=== PATIENT | female | born 1980 | race Caucasian/White ===

== ENCOUNTER 2016-10-16 | Emergency (ER) | payer MEDICAID, OTHER ==
[~2016-10-16] VITALS: Ht 172.7 cm; Wt 73.0 kg
[~2016-10-16] MED LIST: INSULIN
[2016-10-16] MEDS ORDERED: HYDROMORPHONE 1 MG/1 ML DISP.SYRIN IM ONE (01:30)
[2016-10-16] MEDS ORDERED: PROMETHAZINE HCL 25 MG/1 ML VIAL IM ONE (01:30)
--- NOTE | 2016-10-16 01:35 | NUR ---
xrays obtained, awaiting results. Pt was able to locate ride home. Pt medicated for pain, will monitor for effects of medication.
[2016-10-16] MEDS ORDERED: HYDROMORPHONE 1 MG/1 ML DISP.SYRIN ONE (01:43)
[2016-10-16] MEDS ORDERED: PROMETHAZINE HCL 25 MG/1 ML VIAL ONE (01:44)
--- NOTE | 2016-10-16 01:54 | NUR ---
Pt stable for discharge per MD. Pt given ACI. Pt verbalized understanding of dc instructions. PT ambulated out of er with slow steady gait and ride home.
[2016-10-16 01:55] VITALS: BP 144/91
== END 2016-10-16 01:50 | disposition home or self-care (01) ==
LOC: ER 00:10
DX: S80.12XA Contusion of left lower leg, initial encounter (principal); E11.9 Type 2 diabetes mellitus without complications; Z79.4 Long term (current) use of insulin; V49.3XXA Car occupant (driver) (passenger) injured in unspecified nontraffic accident, initial encounter; Y93.89 Activity, other specified; Y92.9 Unspecified place or not applicable; Y99.9 Unspecified external cause status
CPT/HCPCS: 73590; A4663; J1170; J2550

== ENCOUNTER 2016-11-06 15:16 | Emergency (ER) | payer MEDICAID ==
[~2016-11-06] VITALS: Ht 170.2 cm; Wt 70.3 kg
--- NOTE | 2016-11-06 15:30 | NUR ---
DR PRICE AT THE BEDSIDE FOR EVAL AND EXAM.
[2016-11-06] MEDS ORDERED: VANCOMYCIN IV 1,000 MG in IV DEXTROSE 5% 250 ML IV ONE (15:45)
[2016-11-06] MEDS ORDERED: PIPERACILLIN SODIUM/TAZOBACTAM 3.375 G in IV DEXTROSE 5% 50 ML IV ONE (15:45)
[2016-11-06] MEDS ORDERED: AMPH20TA3 PO (15:46)
[2016-11-06] MEDS ORDERED: HYDR-3974 PO (15:46)
[2016-11-06] MEDS ORDERED: IBUP-1955 PO (15:46)
--- NOTE | 2016-11-06 15:57 | NUR ---
PT SIGNED CONSENT FOR WAIVER, PLACED IN THE CHART.
[2016-11-06 16:02] LABS: BASOPHILS % (AUTO) 0.6 % (0.0-2.0); EOSINOPHILS # (AUTO) 0.1 K/uL (0.0-0.7); EOSINOPHILS % (AUTO) 1.7 % (0.0-7.0); HEMATOCRIT 36.1 % (37-47); LYMPHOCYTES # (AUTO) 1.2 K/UL (0.8-4.8); LYMPHOCYTES % (AUTO) 15.3 % (20.5-51.5); MEAN CORPUSCULAR HEMOGLOBIN 30.8 UUG (27.0-31.0); MEAN CORPUSCULAR HGB CONC 33 g/dL (32.0-37.0); MEAN CORPUSCULAR VOLUME 92.5 FL (81.0-99.0); MONOCYTES # (AUTO) 0.5 K/UL (0.1-1.30); MONOCYTES % (AUTO) 6.9 % (0.0-11.0); NEUTROPHILS # (AUTO) 6.1 K/UL (1.8-8.9); NEUTROPHILS % (AUTO) 75.5 % (38.5-71.5); PLATELET COUNT (AUTO) 222 K/UL (150-450); WHITE BLOOD COUNT (AUTO) 7.9 K/UL (4.0-11.2)
[2016-11-06] MEDS ORDERED: VANCOMYCIN IV 200 ML ONE (16:02)
[2016-11-06] MEDS ORDERED: PIPERACILLIN/TAZOBACTAM/D5W 50 ML IV ONE (16:03)
--- NOTE | 2016-11-06 16:10 | NUR ---
PT REFUSED TO BE TRANSFERED TO [facility](PER PT'S OWN INSURANCE). NILAM PASCAL SPOKE TO LAP LAYER.
[2016-11-06 16:15] LABS: BILIRUBIN,DIRECT 0.1 mg/dL (0.0-0.2); BILIRUBIN,TOTAL 0.2 mg/dL (0.2-1.0); CREATININE 0.9 mg/dL (0.6-1.3); POTASSIUM 4.3 mmol/L (3.5-5.1); TOTAL PROTEIN, SERUM 7.2 g/dL (6.4-8.2)
[2016-11-06] MEDS ORDERED: HYDROCODONE/APAP 5-325MG TABLET PO ONE (16:30)
--- NOTE | 2016-11-06 16:43 | NUR ---
DAKOTAH([facility]) AT THE BEDSIDE ASSISSTING PT W/ INSURANCE INFO.
[2016-11-06] MEDS ORDERED: HYDROCODONE/APAP 5-325MG TABLET ONE (16:47)
[2016-11-06] MEDS ORDERED: INSULIN REGULAR, HUMAN 1,000 UNITS/10 ML VIAL SUBCUT ONE (18:00)
[2016-11-06] MEDS ORDERED: INSULIN REGULAR, HUMAN 300 UNIT/3 ML VIAL ONE (18:11)
--- NOTE | 2016-11-06 18:17 | NUR ---
IV removed. Catheter intact and site benign. Pressure and 4x4 gauze applied to site. No bleeding noted.
--- NOTE | 2016-11-06 18:17 | NUR ---
Patient discharged to home in stable conditon. Written and verbal after care instructions given. Patient verbalizes understanding of instructions.
[2016-11-06 18:18] VITALS: BP 115/69
== END 2016-11-06 18:22 | disposition home or self-care (01) ==
LOC: ER 15:17
DX: L03.116 Cellulitis of left lower limb (principal); E11.9 Type 2 diabetes mellitus without complications; Z79.4 Long term (current) use of insulin
CPT/HCPCS: 36415; 71010; 83605; 85025; 85730; 87040; 93005; A4663; J1815; J2543; J3370

== ENCOUNTER 2017-10-10 11:29 | Emergency (ER) | payer BC, MEDICAID ==
[~2017-10-10] VITALS: Ht 170.2 cm; Wt 68.0 kg
[~2017-10-10 11:29] MED LIST changes: +AMPH20TA3 PO; +HYDR-3974 PO; +IBUP-1955 PO
[2017-10-10] MEDS ORDERED: HYDR-3326 PO (11:45)
[2017-10-10] MEDS ORDERED: HUMALOG INSULIN (11:45)
--- NOTE | 2017-10-10 13:39 | NUR ---
shara barrett at the bedside
--- NOTE | 2017-10-10 14:15 | NUR ---
Patient discharged to home in stable conditon. Written and verbal after care instructions given. Patient verbalizes understanding of instructions.
== END 2017-10-10 14:16 | disposition home or self-care (01) ==
LOC: ER 11:31
DX: G89.18 Other acute postprocedural pain (principal); M25.562 Pain in left knee; E11.9 Type 2 diabetes mellitus without complications; Z88.1 Allergy status to other antibiotic agents; Z91.048 Other nonmedicinal substance allergy status; Z79.891 Long term (current) use of opiate analgesic; Z79.4 Long term (current) use of insulin; Z79.1 Long term (current) use of non-steroidal anti-inflammatories (NSAID); Z79.899 Other long term (current) drug therapy
CPT/HCPCS: A4663

== ENCOUNTER 2019-05-11 20:34 | Emergency (ER) | payer MEDICAID ==
[~2019-05-11] VITALS: Ht 172.7 cm; Wt 67.6 kg
[2019-05-11 21:24] VITALS: BP 117/85
--- NOTE | 2019-05-11 21:24 | NUR ---
Patient discharged to home in stable conditon. Written and verbal after care instructions given. Patient verbalizes understanding of instructions. Patient discharged home with crutches and boot. CMS WNL. No acute distress
== END 2019-05-11 21:26 | disposition home or self-care (01) ==
LOC: ER 20:34
DX: S99.922A Unspecified injury of left foot, initial encounter (principal); M23.91 Unspecified internal derangement of right knee; F17.200 Nicotine dependence, unspecified, uncomplicated; E10.9 Type 1 diabetes mellitus without complications; Z88.1 Allergy status to other antibiotic agents; X50.1XXA Overexertion from prolonged static or awkward postures, initial encounter; Y93.89 Activity, other specified; Y92.091 Bathroom in other non-institutional residence as the place of occurrence of the external cause; Y99.8 Other external cause status
CPT/HCPCS: 73630; A4663

== ENCOUNTER 2019-09-22 22:29 | Emergency (ER) | payer BC, MEDICAID ==
[~2019-09-22] VITALS: Ht 172.7 cm; Wt 62.6 kg
[~2019-09-22 22:29] MED LIST changes: -AMPH20TA3 PO; +HUMALOG INSULIN; +HYDR-3326 PO; -HYDR-3974 PO; -IBUP-1955 PO; -INSULIN
--- NOTE | 2019-09-22 22:30 | NUR ---
Patient walked into ER c/o left foot redness and swelling. Patient states she is post op on 09/05/19 at [facility] for bone fragment removal. Has surgical shoes on. Stitches removed by surgeon 2 days ago.
[2019-09-22] MEDS ORDERED: DOXY100C2 PO (22:43)
--- NOTE | 2019-09-22 23:00 | NUR ---
Dr Rivera into eval patient.
[2019-09-22 23:25] LABS: *URINE HCG, QUAL NEGATIVE (NEGATIVE)
--- NOTE | 2019-09-23 00:33 | NUR ---
Patient discharged to home in stable condition. Written and verbal after care instructions given. Patient verbalizes understanding of instructions. Stressed follow up or return to ER for worsening s/s. Dressing placed on left foot as ordered by Dr Rivera.
[2019-09-23 00:34] VITALS: BP 140/85
== END 2019-09-23 00:35 | disposition home or self-care (01) ==
LOC: ER 22:33
DX: R22.42 Localized swelling, mass and lump, left lower limb (principal); L03.116 Cellulitis of left lower limb; F17.210 Nicotine dependence, cigarettes, uncomplicated; E10.8 Type 1 diabetes mellitus with unspecified complications; Z79.4 Long term (current) use of insulin; Z98.890 Other specified postprocedural states
CPT/HCPCS: 73630; 76881; 84703; A4663

== ENCOUNTER 2019-11-19 14:55 | Emergency (ER) | payer BC, MEDICAID ==
[~2019-11-19] VITALS: Ht 172.7 cm; Wt 65.3 kg
[~2019-11-19 14:55] MED LIST changes: +DOXY100C2 PO; -HYDR-3326 PO
[2019-11-19] MEDS ORDERED: VANCOMYCIN IV 1,000 MG in IV DEXTROSE 5% 250 ML IV ONE (15:45)
[2019-11-19] MEDS ORDERED: IBUPROFEN 600 MG TABLET PO ONE (15:45)
[2019-11-19] MEDS ORDERED: ACETAMINOPHEN ES 500 MG TABLET PO ONE (15:45)
[2019-11-19] MEDS ORDERED: LORAZEPAM 2 MG/1 ML VIAL IV ONE (16:00)
[2019-11-19] MEDS ORDERED: KETOROLAC TROMETHAMINE 30 MG INJ IVP ONE (16:15)
--- NOTE | 2019-11-19 16:35 | NUR ---
DR. SALMERON AWARE AND CHARGE NURSE AWARE CALL [phone]
--- NOTE | 2019-11-19 16:35 | NUR ---
39 YRAS FEMALE C/O PAIN AND REDNES ON RT SMALE TOE HERE FOR EVALUATION PT ANXOUSE AND COOPARITIVE INSERTED ANGO CATH # 20 ON RT AC FOR IV ANTIBOTIC PT WALK OUT AND REFUSED TO WAIT FOR MEDITION AND WALK OUT WITH IV LINE REFUSED ME TO TAKE OUT HER H/ AND DROVE HERE CAR PT AWARE WE HAVE TO NOTEFY POLICE FOR HERE DUE TO GOING HOME WITH H/C
[2019-11-19] MEDS ORDERED: VANCOMYCIN IV 200 ML ONE (16:50)
== END 2019-11-19 16:35 | disposition left against medical advice (07) ==
LOC: ER 14:55
DX: L03.115 Cellulitis of right lower limb (principal); E10.69 Type 1 diabetes mellitus with other specified complication; M86.8X7 Other osteomyelitis, ankle and foot; Z79.4 Long term (current) use of insulin; F17.200 Nicotine dependence, unspecified, uncomplicated; F31.9 Bipolar disorder, unspecified; Z88.1 Allergy status to other antibiotic agents; Z91.040 Latex allergy status
CPT/HCPCS: 73630; 99283; J3370 ×2; A4663

== ENCOUNTER 2019-11-23 00:11 | Emergency (ER) | payer BC ==
[~2019-11-23] VITALS: Ht 172.7 cm; Wt 64.4 kg
--- NOTE | 2019-11-23 00:15 | NUR ---
Patient walked into ER with c/o left foot pain, states she is being treated for a foot infection with oral antibiotics but she feels like it is not getting better. Patient ambulated with steady gait, denies any chest pain, shortness of breath, chills, nausea/vomiting at this time.
--- NOTE | 2019-11-23 00:24 | NUR ---
Dr. Jolley at bedside for MSE.
[2019-11-23] MEDS ORDERED: CEFTRIAXONE 1 G in IV DEXTROSE 5% 50 ML IV ONE (00:30)
[2019-11-23] MEDS ORDERED: ONDANSETRON 4 MG/2 ML VIAL IV ONE (00:30)
[2019-11-23] MEDS ORDERED: MORPHINE SULFATE 4 MG/1 ML DISP.SYRIN IV ONE (00:30)
[2019-11-23] MEDS ORDERED: VANCOMYCIN IV 1,000 MG in IV DEXTROSE 5% 250 ML IV ONE (00:30)
[2019-11-23] MEDS ORDERED: IV NORMAL SALINE 1000 ML BAG IV ONE (00:30)
[2019-11-23] MEDS ORDERED: ONDANSETRON 4 MG/2 ML VIAL ONE (00:36)
[2019-11-23] MEDS ORDERED: MORPHINE SULFATE 4 MG/1 ML DISP.SYRIN ONE (00:36)
[2019-11-23] MEDS ORDERED: VANCOMYCIN IV 200 ML ONE (00:36)
[2019-11-23] MEDS ORDERED: CEFTRIAXONE /D5W 50ML IVPB **ER PYXIS IV ONE (00:37)
[2019-11-23 00:45] LABS: BASOPHILS # (AUTO) 0.1 K/uL (0.0-8.0); BASOPHILS % (AUTO) 0.8 % (0.0-2.0); EOSINOPHILS # (AUTO) 0.2 K/uL (0.0-0.7); EOSINOPHILS % (AUTO) 2.9 % (0.0-7.0); HEMATOCRIT 37.8 % (31.2-41.9); HEMOGLOBIN 12.9 g/dL (10.9-14.3); LYMPHOCYTES # (AUTO) 1.7 K/uL (20.0-40.0); LYMPHOCYTES % (AUTO) 21.5 % (20.5-51.5); MEAN CORPUSCULAR HEMOGLOBIN 32.6 uug (24.7-32.8); MEAN CORPUSCULAR HGB CONC 34 g/dL (32.3-35.6); MEAN CORPUSCULAR VOLUME 95.4 fL (75.5-95.3); MONOCYTES # (AUTO) 0.7 K/uL (2.0-10.0); MONOCYTES % (AUTO) 8.9 % (0.0-11.0); NEUTROPHILS # (AUTO) 5.3 K/uL (1.8-8.9); NEUTROPHILS % (AUTO) 65.9 % (38.5-71.5); PLATELET COUNT (AUTO) 228 K/uL (179-408); RED BLOOD CELL COUNT(AUTO) 3.97 MIL/uL (3.63-4.92); WHITE BLOOD COUNT (AUTO) 8.1 K/uL (3.8-11.8)
[2019-11-23 00:53] LABS: CREATININE 1.1 mg/dL (0.6-1.3)
[2019-11-23 00:58] LABS: BILIRUBIN,DIRECT 0.1 mg/dL (0.0-0.2); BILIRUBIN,TOTAL 0.2 mg/dL (0.2-1.0); TOTAL PROTEIN, SERUM 7.2 g/dL (6.4-8.2)
--- NOTE | 2019-11-23 01:30 | NUR ---
Attempted to call Dr. Michael from [facility], left message to call us back.
--- NOTE | 2019-11-23 01:54 | NUR ---
Attempted to call Dr. Michael . m
--- NOTE | 2019-11-23 02:11 | NUR ---
Left message for Dr. Michael to call us back.
--- NOTE | 2019-11-23 02:47 | NUR ---
DR SALMERON SPEAKING WITH DR. VORA AT THIS TIME.
--- NOTE | 2019-11-23 04:18 | NUR ---
Spoke with Delores from [facility], need covid result before transfer. Spoke with Pinky from lab, will call occupational therapist's assistant again for specimen pharmacy picking tech.
--- NOTE | 2019-11-23 05:15 | NUR ---
Spoke with Pinky from lab, kaleb picked up specimen at this time.
--- NOTE | 2019-11-23 06:30 | NUR ---
Called lab to follow up on covid test.
--- NOTE | 2019-11-23 06:51 | NUR ---
Covid results to be faxed to [facility] once available. phone number . Authorization # for transport [id number] through [facility]. [facility] #
--- NOTE | 2019-11-23 06:53 | NUR ---
Spoke with lab again, no results available yet, lab staff to call Juan Pires for results.
--- NOTE | 2019-11-23 07:09 | NUR ---
handoff to JAYANT Dumont
--- NOTE | 2019-11-23 07:24 | NUR ---
COVID test results faxed to [facility], awaiting call from transfer center.
--- NOTE | 2019-11-23 07:24 | NUR ---
Received report from Neel SABA.
--- NOTE | 2019-11-23 07:25 | NUR ---
Recieved ANNA results and faxed to [facility]
--- NOTE | 2019-11-23 08:00 | NUR ---
Called [facility], stated they have not recieved fax of COVID results. Refaxed and awaiting for a call back.
--- NOTE | 2019-11-23 09:15 | NUR ---
Called [facility] spoke to Joshua SABA for report.
--- NOTE | 2019-11-23 09:16 | NUR ---
Miriam called for rock picker. [id number] rock picker given for transport.
--- NOTE | 2019-11-23 10:05 | NUR ---
Ambulance picked up patient D/C and being transported to [facility]
[2019-11-23 10:12] VITALS: BP 118/70
== END 2019-11-23 10:00 | disposition short-term general hospital (02) ==
LOC: ER 00:14
DX: E10.69 Type 1 diabetes mellitus with other specified complication (principal); M86.8X7 Other osteomyelitis, ankle and foot; Z79.4 Long term (current) use of insulin; F31.9 Bipolar disorder, unspecified; L03.115 Cellulitis of right lower limb; Z20.828 Contact with and (suspected) exposure to other viral communicable diseases
CPT/HCPCS: 36415; 73630; 80048; 80076; 85025; 85730; 87426; 96365; 96367; 96375; 99284; J0696; J2270; J2405; J3370

== ENCOUNTER 2020-02-28 07:26 | Emergency (ER) | payer SELFPAY ==
--- NOTE | 2020-02-28 07:30 | NUR ---
PT NOT IN WAITING ROOM, NOR WITHIN ER PERIPHERY OUTSIDE.
== END 2020-02-28 07:45 | disposition left against medical advice (07) ==
LOC: ER 07:26
DX: Z75.3 Unavailability and inaccessibility of health-care facilities (principal)

== ENCOUNTER 2020-03-24 17:47 | Emergency (ER) | payer BC ==
[~2020-03-24] VITALS: Ht 172.7 cm; Wt 61.2 kg
[2020-03-24] MEDS ORDERED: ONDANSETRON 4 MG/2 ML VIAL IV ONE (18:15)
[2020-03-24] MEDS ORDERED: IV NORMAL SALINE 1000 ML BAG IV ONE ×2 (18:15)
[2020-03-24] MEDS ORDERED: HYDROMORPHONE 1 MG/1 ML DISP.SYRIN IV ONE (18:15)
[2020-03-24] MEDS ORDERED: HYDROMORPHONE 2 MG/1 ML DISP.SYRIN ONE (18:33)
[2020-03-24] MEDS ORDERED: ONDANSETRON 4 MG/2 ML VIAL ONE (18:33)
[2020-03-24 19:03] LABS: MONOCYTES # (AUTO) 1.2 K/uL (2.0-10.0); PLATELET COUNT (AUTO) 137 K/uL (179-408)
[2020-03-24 19:09] LABS: BASOPHILS % (AUTO) 0.5 % (0.0-2.0); HEMATOCRIT 41.5 % (31.2-41.9); HEMOGLOBIN 13.9 g/dL (10.9-14.3); LYMPHOCYTES # (AUTO) 0.5 K/uL (20.0-40.0); LYMPHOCYTES % (AUTO) 5.7 % (20.5-51.5); MEAN CORPUSCULAR HEMOGLOBIN 31.7 uug (24.7-32.8); MEAN CORPUSCULAR HGB CONC 34 g/dL (32.3-35.6); MEAN CORPUSCULAR VOLUME 94.4 fL (75.5-95.3); MONOCYTES % (AUTO) 14.9 % (0.0-11.0); NEUTROPHILS # (AUTO) 6.6 K/uL (1.8-8.9); NEUTROPHILS % (AUTO) 78.9 % (38.5-71.5); RED BLOOD CELL COUNT(AUTO) 4.39 MIL/uL (3.63-4.92); WHITE BLOOD COUNT (AUTO) 8.4 K/uL (3.8-11.8)
[2020-03-24 19:12] LABS: BILIRUBIN,DIRECT 0.1 mg/dL (0.0-0.2); BILIRUBIN,TOTAL 0.3 mg/dL (0.2-1.0); CREATININE 1.1 mg/dL (0.6-1.3); POTASSIUM 3.7 mmol/L (3.5-5.1); TOTAL PROTEIN, SERUM 7.2 g/dL (6.4-8.2)
[2020-03-24] MEDS ORDERED: VANCOMYCIN 1G/D5W 200 ML PIGGYBACK IV ONE (19:15)
--- NOTE | 2020-03-24 19:24 | NUR ---
received patient in shift report from Muriel SABA
[2020-03-24] MEDS ORDERED: VANCOMYCIN IV 200 ML ONE (19:31)
[2020-03-24] MEDS ORDERED: PIPERACILLIN/TAZOBACTAM/D5W 50 ML IV ONE (20:10)
--- NOTE | 2020-03-24 20:16 | NUR ---
Flu swab sent to lab at this time
[2020-03-24] MEDS ORDERED: PIPERACILLIN SODIUM/TAZOBACTAM 3.375 G in IV DEXTROSE 5% 50 ML IV ONE (21:15)
--- NOTE | 2020-03-24 22:18 | NUR ---
MD Jeana maurice his Addendum: 03/24/20 at 2219 by JACQUIE MD jeana sanchez at this time
--- NOTE | 2020-03-24 22:18 | NUR ---
patient noted resting in bed
--- NOTE | 2020-03-24 23:40 | NUR ---
Patient discharged to home in stable condition. Instructed to follow up with in two days for wound check, Rx given Written and verbal after care instructions given. Patient verbalizes understanding of instructions. Stressed follow up or return to ER for worsening s/s.
[2020-03-24 23:58] VITALS: BP 129/77
[2020-03-25] MEDS ORDERED: OXYC-128 PO (22:55)
[2020-03-25] MEDS ORDERED: SULF1TAB48 PO (22:55)
[2020-03-25] MEDS ORDERED: CEPH-570 PO (22:55)
[2020-03-25] MEDS ORDERED: INSU100I26 SQ (22:55)
== END 2020-03-25 00:08 | disposition home or self-care (01) ==
LOC: ER 17:49
DX: U07.1 COVID-19 (principal); L03.115 Cellulitis of right lower limb; R10.32 Left lower quadrant pain; R11.2 Nausea with vomiting, unspecified; R00.0 Tachycardia, unspecified; E10.65 Type 1 diabetes mellitus with hyperglycemia; E87.1 Hypo-osmolality and hyponatremia; E87.2 Acidosis
CPT/HCPCS: 71045; 73610; 80048; 80076; 82009; 83605 ×2; 83690; 84702; 85025; 85730; 87040; 87400; 87426; 93005; 96361; 96365; 96366; 96368; 96375; 99285; J1170; J2405; J2543; J3370; U0003; A4663; J7030

== ENCOUNTER 2020-03-25 19:13 | Inpatient (IN) | payer BC ==
[~2020-03-25] VITALS: Ht 165.1 cm; Wt 61.7 kg
--- NOTE | 2020-03-25 20:35 | NUR ---
at bedside for assessment
[2020-03-25] MEDS ORDERED: PIPERACILLIN/TAZOBACTAM/D5W 50 ML IV ONE (20:57)
[2020-03-25] MEDS ORDERED: VANCOMYCIN IV 200 ML ONE (20:57)
[2020-03-25] MEDS ORDERED: HYDROMORPHONE 1 MG/1 ML DISP.SYRIN ONE ×3 (20:57→23:42)
[2020-03-25] MEDS ORDERED: ONDANSETRON 4 MG/2 ML VIAL ONE (20:57)
[2020-03-25] MEDS ORDERED: IV NS 1000 ML 1,000 ML IV ONE (21:00)
[2020-03-25] MEDS ORDERED: HYDROMORPHONE 1 MG/1 ML DISP.SYRIN IV ONE ×3 (21:00→23:45)
[2020-03-25] MEDS ORDERED: PIPERACILLIN SODIUM/TAZOBACTAM 3.375 G in IV DEXTROSE 5% 50 ML IV ONE (21:00)
[2020-03-25] MEDS ORDERED: ONDANSETRON 4 MG/2 ML VIAL IV ONE (21:00)
[2020-03-25] MEDS ORDERED: VANCOMYCIN 1G/D5W 200 ML PIGGYBACK IV ONE (21:00)
[2020-03-25 21:47] LABS: BASOPHILS % (AUTO) 0.3 % (0.0-2.0); EOSINOPHILS % (AUTO) 0.1 % (0.0-7.0); HEMATOCRIT 38.3 % (31.2-41.9); HEMOGLOBIN 12.9 g/dL (10.9-14.3); LYMPHOCYTES # (AUTO) 0.7 K/uL (20.0-40.0); LYMPHOCYTES % (AUTO) 10.6 % (20.5-51.5); MEAN CORPUSCULAR HGB CONC 34 g/dL (32.3-35.6); MEAN CORPUSCULAR VOLUME 95.2 fL (75.5-95.3); MONOCYTES # (AUTO) 0.7 K/uL (2.0-10.0); MONOCYTES % (AUTO) 10.5 % (0.0-11.0); NEUTROPHILS # (AUTO) 5.5 K/uL (1.8-8.9); NEUTROPHILS % (AUTO) 78.5 % (38.5-71.5); PLATELET COUNT (AUTO) 149 K/uL (179-408); RED BLOOD CELL COUNT(AUTO) 4.02 MIL/uL (3.63-4.92)
[2020-03-25 21:51] LABS: BILIRUBIN,DIRECT 0.1 mg/dL (0.0-0.2); BILIRUBIN,TOTAL 0.3 mg/dL (0.2-1.0); CREATININE 1.1 mg/dL (0.6-1.3); POTASSIUM 3.6 mmol/L (3.5-5.1); TOTAL PROTEIN, SERUM 7.3 g/dL (6.4-8.2)
[2020-03-25] MEDS ORDERED: OXYC-128 PO (22:55)
[2020-03-25] MEDS ORDERED: INSU100I26 SQ (22:55)
[2020-03-25] MEDS ORDERED: SULF1TAB48 PO (22:55)
[2020-03-25] MEDS ORDERED: CEPH-570 PO (22:55)
[2020-03-26] MEDS ORDERED: MAGNESIUM HYDROXIDE 30 ML LIQUID UDC PO PRN
[2020-03-26] MEDS ORDERED: ACETAMINOPHEN 325 MG TABLET PO PRN
[2020-03-26] MEDS ORDERED: DEXTROSE 50% 50 ML DISP.SYRIN IV PRN
--- NOTE | 2020-03-26 | NUR ---
redness and discharge noted from patients right foot incision, made aware
[2020-03-26] MEDS ORDERED: IV NS 1000 ML 1,000 ML IV ONE (00:15)
--- NOTE | 2020-03-26 00:22 | NUR ---
report given to Peter SABA on medsurg unit room 304
--- NOTE | 2020-03-26 01:16 | NUR ---
Pt. admitted to [facility] covid unit, under care of DIRECTOR SEARCH Noe Campbell Belongs List completed and all belongings sent, room 321
[2020-03-26 01:30] VITALS: BP 135/84
[2020-03-26] MEDS: ONDANSETRON 4 MG/2 ML VIAL IV PRN (01:37)
--- NOTE | 2020-03-26 01:45 | NUR ---
Patient brought to med surg covid unit from ER via wheelchair by staff nurse with the Dx of Cellulitis on rt foot and covid .Patient AALOx4.C/O nausea.Medicated with Zofran IVP with relief.Denied pain at this time. No s/s of distress noted. On Ra saturating 99 %.Ambulates to bathroom using crutches.Rt foot noted with redness and swelling .Iv on left AC 22 g.Started IVF running at 75 cc/ml .Tolerated well.Will continue to monitor.
[2020-03-26 05:08] VITALS: BP_SYST 130; BP_SYST 92; BP_DIAS 48; BP_DIAS 64
[2020-03-26] MEDS: BLOOD SUGAR DIAGNOSTIC 1 EACH STRIP VI SCH ×4 (06:05→20:42)
--- NOTE | 2020-03-26 06:26 | NUR ---
Patient awake.BS 38 .Bureau Juice and sandwich given.
[2020-03-26 06:39] LABS: BASOPHILS % (AUTO) 0.3 % (0.0-2.0); EOSINOPHILS % (AUTO) 0.2 % (0.0-7.0); HEMATOCRIT 34.4 % (31.2-41.9); HEMOGLOBIN 11.6 g/dL (10.9-14.3); LYMPHOCYTES % (AUTO) 21.7 % (20.5-51.5); MEAN CORPUSCULAR HEMOGLOBIN 32.3 uug (24.7-32.8); MEAN CORPUSCULAR HGB CONC 34 g/dL (32.3-35.6); MONOCYTES # (AUTO) 0.7 K/uL (2.0-10.0); MONOCYTES % (AUTO) 15.9 % (0.0-11.0); NEUTROPHILS # (AUTO) 2.8 K/uL (1.8-8.9); NEUTROPHILS % (AUTO) 61.9 % (38.5-71.5); PLATELET COUNT (AUTO) 143 K/uL (179-408); RED BLOOD CELL COUNT(AUTO) 3.58 MIL/uL (3.63-4.92); WHITE BLOOD COUNT (AUTO) 4.5 K/uL (3.8-11.8)
[2020-03-26 07:09] LABS: BILIRUBIN,TOTAL 0.3 mg/dL (0.2-1.0); MAGNESIUM 1.9 mg/dL (1.8-2.4); PHOSPHOROUS 3.5 mg/dL (2.5-4.9); POTASSIUM 3.7 mmol/L (3.5-5.1); TOTAL PROTEIN, SERUM 6.3 g/dL (6.4-8.2)
[2020-03-26 07:21] LABS: THYROID STIMULATING HORMONE 1.188 mIU/mL (0.358-3.740)
[2020-03-26 08:07] LABS: LYMPHOCYTES % (MANUAL) 20 % (20-40); MONOCYTES % (MANUAL) 15 % (2-10); NEUTROPHILS % (MANUAL) 65 % (42-75)
[2020-03-26] MEDS ORDERED: VANCOMYCIN IV 1,000 MG in IV DEXTROSE 5% 250 ML IV SCH (09:00)
--- NOTE | 2020-03-26 09:18 | NUR ---
patient stated she has her own insulin in her purse and injected with long lasting insulin herself, offered patient to give it to us, send it to pharmacy, patient stated "no" she wants to keep her insulin with her, and would not let anyone touch it, reinforced signs and symptoms of hypoglycemia with patient, patient verbalized understanding of it
[2020-03-26] MEDS: VANCOMYCIN IV 1,000 MG in IV DEXTROSE 5% 250 ML IV SCH ×2 (10:04→20:31)
--- NOTE | 2020-03-26 11:39 | NUR ---
patient refused regular sliding scale insulin, stated she does not like our needle, explained risks and benefits, patient still refused to have her regular insulin, patient stated she would like to leave. patient is alert oriented x4, verbalized understanding of it
[2020-03-26 11:49] VITALS: BP 104/61
[2020-03-26] MEDS: INSULIN REGULAR, HUMAN 300 UNIT/3 ML VIAL SQ PRN ×2 (16:14→21:24)
[2020-03-26 16:41] VITALS: BP 128/81
[2020-03-26] MEDS: HYDROMORPHONE 1 MG/1 ML DISP.SYRIN IV PRN ×2 (17:14→21:26)
[2020-03-26 20:44] VITALS: BP 111/71
--- NOTE | 2020-03-26 21:45 | NUR ---
Patient awake.Alert x4.Resting in bed.C/o pain on right foot,medicated with Dilaudid with relieved .On RA .Denied SOB.Iv on left AC 22 g patent and intact.Administered IV ATB as ordered .No a/r noted.Elevated foot with pillow.Rt foot still noted with redness and swelling.Continue safety measures.Will continue to monitor.
[2020-03-27] MEDS: HYDROMORPHONE 1 MG/1 ML DISP.SYRIN IV PRN ×4 (01:58→20:30)
[2020-03-27] MEDS: ONDANSETRON 4 MG/2 ML VIAL IV PRN ×4 (01:58→21:17)
[2020-03-27 05:12] VITALS: BP 141/78
[2020-03-27] MEDS: BLOOD SUGAR DIAGNOSTIC 1 EACH STRIP VI SCH ×4 (06:22→20:46)
[2020-03-27] MEDS: INSULIN REGULAR, HUMAN 300 UNIT/3 ML VIAL SQ PRN ×4 (07:16→20:57)
[2020-03-27] MEDS: INSULIN GLARGINE,HUM 300 UNITS/3 ML CARTRIDGE SQ SCH (08:06)
[2020-03-27 08:17] LABS: BASOPHILS % (AUTO) 0.5 % (0.0-2.0); EOSINOPHILS % (AUTO) 0.3 % (0.0-7.0); HEMATOCRIT 37.6 % (31.2-41.9); HEMOGLOBIN 12.7 g/dL (10.9-14.3); LYMPHOCYTES # (AUTO) 1.2 K/uL (20.0-40.0); LYMPHOCYTES % (AUTO) 32.1 % (20.5-51.5); MEAN CORPUSCULAR HEMOGLOBIN 32.4 uug (24.7-32.8); MEAN CORPUSCULAR HGB CONC 34 g/dL (32.3-35.6); MEAN CORPUSCULAR VOLUME 95.6 fL (75.5-95.3); MONOCYTES # (AUTO) 0.4 K/uL (2.0-10.0); NEUTROPHILS # (AUTO) 2.2 K/uL (1.8-8.9); NEUTROPHILS % (AUTO) 56.1 % (38.5-71.5); PLATELET COUNT (AUTO) 163 K/uL (179-408); RED BLOOD CELL COUNT(AUTO) 3.94 MIL/uL (3.63-4.92); WHITE BLOOD COUNT (AUTO) 3.9 K/uL (3.8-11.8)
[2020-03-27 08:20] LABS: CREATININE 0.9 mg/dL (0.6-1.3); POTASSIUM 3.6 mmol/L (3.5-5.1)
[2020-03-27] MEDS: VANCOMYCIN IV 1,250 MG in IV DEXTROSE 5% 250 ML IV SCH ×2 (09:04→20:38)
[2020-03-27 11:00] VITALS: BP 130/75
--- NOTE | 2020-03-27 11:50 | NUR ---
WOUND CARE CONSULT: REVIEWED CHART, NURSING DOCUMENTATION AND SPOKE WITH NURSING STAFF. PER NURSING STAFF, PT IS UNCOOPERATIVE AND HAS BEEN REFUSING THINGS. NO PHOTO AVAILABLE AT THIS TIME. ELEVATE LEGS IF POSSIBLE. RN TO DISCUSS WITH .
[2020-03-27 15:26] VITALS: BP 126/64
[2020-03-27 20:27] VITALS: BP 145/82
[2020-03-27] MEDS: MEROPENEM 1 G in IV NORMAL SALINE 100 ML IV SCH (22:13)
[2020-03-27] MEDS: HYDROCODONE/APAP 5-325MG TABLET PO PRN (22:23)
--- NOTE | 2020-03-27 22:30 | NUR ---
Spoke to patient; appears to be frustrated with care here in the hospital; threatening to go home AMA; reassurance given and plan of care discussed with her; patient agrees not to go home; patient agreed with plan of care. Jessica RN will take over with patient care.
--- NOTE | 2020-03-27 23:30 | NUR ---
HANDS OFF REPORT RECEIVED FROM ELIZABETH SABA. PT AWAKE, ALERT AND ORIENTEDX4. PT COMPLAINT OF FOOT PAIN. SAFETY AND COMFORT PROVIDED. IV INTACT. WILL CONTINUE TO MONITOR.
[2020-03-28] MEDS: HYDROMORPHONE 1 MG/1 ML DISP.SYRIN IV PRN ×5 (00:27→20:46)
[2020-03-28] MEDS: HYDROCODONE/APAP 5-325MG TABLET PO PRN (03:13)
--- NOTE | 2020-03-28 03:25 | NUR ---
PT REFUSED HER NORCO AND WANTS MORPHINE INSTEAD. WASTED MEDICATION IN PYXIS.
[2020-03-28 04:06] VITALS: BP 152/86
[2020-03-28] MEDS: ONDANSETRON 4 MG/2 ML VIAL IV PRN ×3 (04:58→20:50)
[2020-03-28] MEDS: MEROPENEM 1 G in IV NORMAL SALINE 100 ML IV SCH ×2 (06:09→13:01)
--- NOTE | 2020-03-28 06:14 | NUR ---
PT SLEPT INTERMITTENTLY. PT IN NO ACUTE DISTRESS. IV INTACT. ZOFRAN PRN GIVEN AT 0458H. PRESCRIBED MEDICATION GIVEN AND PT TOLERATED IT WELL. PT GIVEN DILAUDID INJ 1MG PRN AT 0027H AND 0458H FOR 8/10 PAIN SCALE. PT TOLERATED IT WELL. PT BLOOD SUGAR WAS 137. SAFETY AND COMFORT PROVIDED. ALL NEEDS ARE MET.WILL CONTINUE TO MONITOR.
[2020-03-28] MEDS: BLOOD SUGAR DIAGNOSTIC 1 EACH STRIP VI SCH ×4 (06:32→21:09)
[2020-03-28] MEDS: INSULIN GLARGINE,HUM 300 UNITS/3 ML CARTRIDGE SQ SCH (08:28)
[2020-03-28] MEDS: VANCOMYCIN IV 1,250 MG in IV DEXTROSE 5% 250 ML IV SCH ×2 (09:02→22:03)
[2020-03-28] MEDS: INSULIN REGULAR, HUMAN 300 UNIT/3 ML VIAL SQ PRN (10:55)
--- NOTE | 2020-03-28 12:26 | NUR ---
WOUND CARE: PT FOLLOWED BY DR LANDERS FOR RT ANKLE. PHOTO IN CHART AT THIS TIME.
[2020-03-28 12:46] VITALS: BP 126/83
[2020-03-28 16:19] VITALS: BP 149/92
--- NOTE | 2020-03-28 16:31 | NUR ---
Mathematics Education Professor consultation received today. Reason for consultation is homelessness. Patient is a 39 year old female. Per ED physician's notes, patient visited the ED twice in a 24 hour period for (R) ankle cellulitis and pain. Patient has also tested positive for COVID-19. SW will follow-up with patient to complete social service liaison consultation assessment.
[2020-03-28 20:00] VITALS: BP 136/86
[2020-03-29] MEDS: MEROPENEM 1 G in IV NORMAL SALINE 100 ML IV SCH ×2 (00:06→06:14)
[2020-03-29] MEDS: HYDROMORPHONE 1 MG/1 ML DISP.SYRIN IV PRN ×3 (01:02→09:13)
[2020-03-29 05:19] VITALS: BP 128/68
--- NOTE | 2020-03-29 06:30 | NUR ---
Pt resting. No s/s of acute distress. Pt on RA denies SOB. Right lower extremity elevated with ice packs in place. Pt c/o pain and nausea, provided pain relief per orders. All needs were met and attended to. Safety measures and Isolation intact.
[2020-03-29] MEDS: BLOOD SUGAR DIAGNOSTIC 1 EACH STRIP VI SCH ×2 (07:02→11:41)
[2020-03-29] MEDS: INSULIN REGULAR, HUMAN 300 UNIT/3 ML VIAL SQ PRN ×2 (08:58→11:46)
[2020-03-29] MEDS: INSULIN GLARGINE,HUM 300 UNITS/3 ML CARTRIDGE SQ SCH (09:00)
[2020-03-29] MEDS ORDERED: VANCOMYCIN IV 1,000 MG in IV DEXTROSE 5% 250 ML IV SCH (09:00)
--- NOTE | 2020-03-29 09:00 | NUR ---
AWAKE AND ALERT WITH MULTIPLE DEMANDS. TRIED REPEATEDLY TO PLACATE THIS PATIENT & SATISFY ALL HER DEMANDS UNSUCCESSFULLY. REFUSED MOST OF BREAKFAST STATES GOING HOME TODAY.
--- NOTE | 2020-03-29 11:00 | NUR ---
Glenda ALMEIDA PROGRAM MANUFACTURING LEADER NOTIFIED OF PATIENT'S DEMANDS. WILL BE IN TO DC HOME.
--- NOTE | 2020-03-29 11:30 | NUR ---
PROVIDED DSGS. SURGICAL BOOTS AND CLOTHES TO PATIENT. STILL NOT SATISFIED. WANTS DIFFERENT AND LARGER BOOTS. INSTRUCTED NOT AVAILABLE IN LARGER SIZE. LEAVING FLOOR TO GO TO ER WITHOUT MASK. SECURITY CALLED.
--- NOTE | 2020-03-29 12:00 | NUR ---
IV DC'D ANGIOCATH REMOVED INTACT. THREATENING TO GO AMA. PACKING HER BAG. NAME BAND REMOVED. REFUSING TO REMOVE DRESSING FROM RIGHT LEG TO BE PHOTOGRAPHED.
--- NOTE | 2020-03-29 12:30 | NUR ---
LEFT AMA ON CRUTCHES. REFUSING TO SIGN AMA FORM. REFUSED DC PAPERWORK.
--- NOTE | 2020-03-30 10:47 | NUR ---
Marketing Strategy Lead Follow-up: This SW was unable to follow-up with this patient on 03/29/2020 due to this SW being unavailable. Per medical records, patient left AMA yesterday, 03/29/2020. Per medical records, patient has a home address, [address] [place] [address], [place] [address].
== END 2020-03-29 12:30 | disposition left against medical advice (07) | DRG 383 ==
LOC: ER 19:21 → MEDSURG3 03-26 00:30
PROVIDERS: ADMIT Nurse Practitioner Acute Care; ATTEND Nurse Practitioner Acute Care
DX: L03.115 Cellulitis of right lower limb (principal); U07.1 COVID-19; F17.210 Nicotine dependence, cigarettes, uncomplicated; E10.65 Type 1 diabetes mellitus with hyperglycemia; E44.0 Moderate protein-calorie malnutrition; E86.1 Hypovolemia; E87.1 Hypo-osmolality and hyponatremia; F31.9 Bipolar disorder, unspecified; Z79.4 Long term (current) use of insulin; M00.9 Pyogenic arthritis, unspecified; E88.09 Other disorders of plasma-protein metabolism, not elsewhere classified; Z91.410 Personal history of adult physical and sexual abuse; Z68.22 Body mass index [BMI] 22.0-22.9, adult
CPT/HCPCS: 36415; 70030-TC; 73610; 73700; 83605; 83735; 84100; 84443; 85025; 87040; A4663; G0378; J1170; J1815; J2185; J2405; J2543; J3370; J3490; J7030; J7060

== ENCOUNTER 2020-04-02 14:57 | Emergency (ER) | payer BC ==
[~2020-04-02] VITALS: Ht 172.7 cm; Wt 104.3 kg
[~2020-04-02 14:57] MED LIST changes: +CEPH-570 PO; -DOXY100C2 PO; -HUMALOG INSULIN; +INSU100I26 SQ; +OXYC-128 PO; +SULF1TAB48 PO
[2020-04-02] MEDS ORDERED: diphenhydrAMINE 50 MG/1 ML VIAL IV ONE (15:30)
[2020-04-02] MEDS ORDERED: IV NORMAL SALINE 1000 ML BAG IV ONE (15:30)
[2020-04-02] MEDS ORDERED: IV NORMAL SALINE 500 ML BAG IV ONE ×2 (15:30→19:00)
[2020-04-02] MEDS ORDERED: METOCLOPRAMIDE HCL 10 MG/2 ML VIAL IV ONE (15:30)
[2020-04-02] MEDS ORDERED: diphenhydrAMINE 50 MG/1 ML VIAL ONE (15:59)
[2020-04-02] MEDS ORDERED: METOCLOPRAMIDE HCL 10 MG/2 ML VIAL ONE (16:00)
[2020-04-02 16:32] LABS: MEAN CORPUSCULAR HGB CONC 33 g/dL (32.3-35.6)
[2020-04-02 16:36] LABS: BASOPHILS # (AUTO) 0.1 K/uL (0.0-8.0); BASOPHILS % (AUTO) 1.4 % (0.0-2.0); EOSINOPHILS % (AUTO) 0.4 % (0.0-7.0); HEMATOCRIT 37.2 % (31.2-41.9); HEMOGLOBIN 12.3 g/dL (10.9-14.3); LYMPHOCYTES # (AUTO) 0.4 K/uL (20.0-40.0); MEAN CORPUSCULAR HEMOGLOBIN 31.1 uug (24.7-32.8); MEAN CORPUSCULAR VOLUME 93.7 fL (75.5-95.3); MONOCYTES # (AUTO) 0.2 K/uL (2.0-10.0); MONOCYTES % (AUTO) 2.8 % (0.0-11.0); NEUTROPHILS # (AUTO) 6.2 K/uL (1.8-8.9); NEUTROPHILS % (AUTO) 89.4 % (38.5-71.5); PLATELET COUNT (AUTO) 379 K/uL (179-408); RED BLOOD CELL COUNT(AUTO) 3.97 MIL/uL (3.63-4.92)
[2020-04-02 16:37] LABS: ABG BASE EXCESS 2.8 mmol/L; ABG HCO3 26.5 mmol/L; ABG PCO2 37.2 mmHg (35.0-45.0); ABG PO2 75.3 mmHg (75.0-100.0); ABG SITE RIGHT RADIAL; ABG TOTAL HEMOGLOBIN 11.9 G/dL (12.0-16.0); COHb 1.1 % (0.5-1.5); MetHb 0.3 % (0.0-1.5); VENT MODE Room Air
[2020-04-02 16:42] LABS: BILIRUBIN,DIRECT 0.1 mg/dL (0.0-0.2); BILIRUBIN,TOTAL 0.3 mg/dL (0.2-1.0); POTASSIUM 3.8 mmol/L (3.5-5.1); TOTAL PROTEIN, SERUM 8.4 g/dL (6.4-8.2)
--- NOTE | 2020-04-02 17:13 | NUR ---
BP 196/93. Dr. Cross aware.
[2020-04-02] MEDS ORDERED: DICYCLOMINE HCL LIQ 10 MG/5 ML UDC ONE (17:42)
[2020-04-02] MEDS ORDERED: KETOROLAC TROMETHAMINE 15 MG INJ ONE (17:42)
[2020-04-02] MEDS ORDERED: FAMOTIDINE. 20 MG/2 ML VIAL IV ONE ×2 (17:43→17:45)
[2020-04-02] MEDS ORDERED: DICYCLOMINE HCL 10 MG CAPSULE PO ONE (17:45)
[2020-04-02] MEDS ORDERED: KETOROLAC TROMETHAMINE 15 MG INJ IVP ONE (17:45)
[2020-04-02] MEDS ORDERED: DICYCLOMINE HCL LIQ 10 MG/5 ML UDC PO ONE (17:45)
--- NOTE | 2020-04-02 17:57 | NUR ---
Per Dr. Cross ok to give liquid bentyl
[2020-04-02 18:14] LABS: *BILIRUBIN,URIN NEGATIVE (NEGATIVE); *COLOR,URINE YELLOW (YELLOW); *KETONES,URINE 3+ (NEGATIVE); *UROBILINOGEN,URINE 0.2 E.U./dl (NORMAL); LEUKOCYTE ESTERASE ,URINE NEGATIVE (NEGATIVE); NITRITE, URINE NEGATIVE (NEGATIVE); PH,URINE 8.5 (5.0-8.0); UGLUCOSE TRACE (NEGATIVE)
[2020-04-02 18:14] LABS: *URINE HCG, QUAL NEGATIVE (NEGATIVE)
[2020-04-02 18:17] LABS: *BLOOD, URINE TRACE (NEGATIVE)
[2020-04-02 18:23] LABS: *CLARITY,URINE SLIGHTLY CLOUDY (CLEAR)
[2020-04-02 18:24] LABS: BACTERIA,URINE FEW /HPF (NONE SEEN); SQUAMOUS EPITHELIAL CELL,UR FEW /HPF (NONE SEEN); URINE AMORPHOUS PHOSPHATES MODERATE /HPF; WBC,URINE 0-3 /HPF (0-3)
[2020-04-02 18:30] LABS: *AMPHETAMINE, URINE NEGATIVE (NEGATIVE); *CANNABINOID, URINE POSITIVE (NEGATIVE); *COCCAINE, URINE NEGATIVE (NEGATIVE); *OPIATE, URINE POSITIVE (NEGATIVE); *PHENCYCLIDINE SCREEN,URINE NEGATIVE (NEGATIVE)
--- NOTE | 2020-04-02 18:59 | NUR ---
SBAR report given to Jalen SABA
--- NOTE | 2020-04-02 21:01 | NUR ---
Patient discharged to home in stable condition. Written and verbal after care instructions given. Patient verbalizes understanding of instructions. Stressed follow up or return to ER for worsening s/s. Patient out of ER with steady gait, no acute signs of distress, VSS, all belongings taken, IV site discontinued, provided copies of labs and xray results, patient to be driven home by mother via private vehicle.
[2020-04-02 21:03] VITALS: BP 130/105
== END 2020-04-02 21:03 | disposition home or self-care (01) ==
LOC: ER 14:57
DX: E86.0 Dehydration (principal); R11.2 Nausea with vomiting, unspecified; R10.84 Generalized abdominal pain; E10.65 Type 1 diabetes mellitus with hyperglycemia; Z79.4 Long term (current) use of insulin; U07.1 COVID-19; R91.8 Other nonspecific abnormal finding of lung field; F20.9 Schizophrenia, unspecified; F31.9 Bipolar disorder, unspecified; Z88.1 Allergy status to other antibiotic agents; Z91.040 Latex allergy status; F17.210 Nicotine dependence, cigarettes, uncomplicated; Z79.899 Other long term (current) drug therapy; R80.9 Proteinuria, unspecified
CPT/HCPCS: 36415; 36600; 71045; 83605; 84703; 85025; 85730; 87040; 87077; 87086; 93005; J1200; J1885; J2765; J3490; J7030

== ENCOUNTER 2022-12-01 16:38 | Emergency (ER) | payer BC | END 2022-12-01 17:06 | disposition left against medical advice (07) | LOC: ER 16:38 | DX: Z53.21 Procedure and treatment not carried out due to patient leaving prior to being seen by health care provider (principal) ==

== ENCOUNTER 2023-02-27 02:47 | Inpatient (IN) | payer BC ==
[~2023-02-27] VITALS: Ht 170.2 cm; Wt 60.0 kg
[2023-02-27] MEDS ORDERED: MORPHINE SULFATE 4 MG/1 ML DISP.SYRIN IV ONE (03:00)
[2023-02-27] MEDS ORDERED: METOCLOPRAMIDE HCL 10 MG/2 ML VIAL IV ONE (03:00)
[2023-02-27] MEDS ORDERED: IV NS 1000 ML 1,000 ML IV ONE ×2 (03:00→06:45)
[2023-02-27] MEDS ORDERED: METOCLOPRAMIDE HCL 10 MG/2 ML VIAL ONE ×3 (03:01→18:07)
[2023-02-27] MEDS ORDERED: MORPHINE SULFATE 4 MG/1 ML DISP.SYRIN ONE ×4 (03:01→23:24)
[2023-02-27 03:14] LABS: SITE, VBG LEFT BRACHIAL; VBG BASE EXCESS -2.8 mmol/L (-3-3); VBG HCO3 20.4 mmol/L (22-27); VBG MetHb 0.3 % (0.0-0.5); VBG O2HB 71.7 %; VBG PCO2 31.1 mmHg (38.0-51.0); VBG PH 7.434 (7.310-7.450); VBG PO2 < 40.5 mmHg (25.0-35.0); VBG TOTAL HEMOGLOBIN 13.7 G/dL (12.0-16.0)
[2023-02-27 03:33] LABS: CALCIUM 9.3 mg/dL (8.5-10.1); CARBON DIOXIDE 20 mmol/L (21-32); CHLORIDE 92 mmol/L (98-107); CREATININE 1.1 mg/dL (0.6-1.3); GLUCOSE 388 mg/dL (74-106); POTASSIUM 3.4 mmol/L (3.5-5.1); SODIUM SERUM 130 mmol/L (136-145); UREA NITROGEN, BLOOD 17 mg/dL (7-18)
[2023-02-27 03:40] LABS: MAGNESIUM 1.7 mg/dL (1.8-2.4); PHOSPHOROUS 3.9 mg/dL (2.5-4.9)
[2023-02-27 03:43] LABS: PREGNANCY TEST SERUM QUAN 1 miul/L (0-6)
[2023-02-27 03:49] LABS: ALANINE AMINOTRANSFERASE 37 U/L (14-59); ALBUMIN 3.8 g/dL (3.4-5.0); ALKALINE PHOSPHATASE 104 U/L (50-136); ASPARTATE AMINOTRANSFERASE 17 U/L (15-37); BILIRUBIN,TOTAL 0.7 mg/dL (0.2-1.0); LIPASE 46 U/L (16-77); TOTAL PROTEIN, SERUM 6.9 g/dL (6.4-8.2)
[2023-02-27 03:55] LABS: ACETONE, SERUM LARGE (NEGATIVE); THYROID STIMULATING HORMONE 0.854 mIU/mL (0.358-3.740)
[2023-02-27] MEDS ORDERED: POTASSIUM CHLORIDE 20 MEQ in IV LACTATED RINGERS SOLUTION 1,000 ML IV PRN (04:15)
[2023-02-27] MEDS ORDERED: INSULIN REGULAR, HUMAN 300 UNIT/3 ML VIAL IV ONE (04:30)
[2023-02-27] MEDS ORDERED: IV 0.9% SODIUM CHLORID+ 20 KCL 1,000 ML ONE (04:30)
[2023-02-27] MEDS ORDERED: IV 0.9% SODIUM CHLORID+ 20 KCL 1,000 ML IV PRN (04:30)
[2023-02-27] MEDS ORDERED: INSULIN REGULAR, HUMAN 100 UNIT in IV NORMAL SALINE 100 ML IV PRN ×2 (04:30)
[2023-02-27] MEDS ORDERED: INSULIN REGULAR, HUMAN 300 UNIT/3 ML VIAL ONE ×2 (04:30→09:05)
[2023-02-27] MEDS ORDERED: HALOPERIDOL LACTATE 5 MG/1 ML VIAL ONE (04:56)
[2023-02-27] MEDS ORDERED: MAGNESIUM SULFATE/D5W 200 ML ONE (04:59)
[2023-02-27] MEDS: MAGNESIUM SULFATE/D5W 100 ML IV SCH ×4 (05:02→09:00)
[2023-02-27] MEDS ORDERED: INSU100C (05:12)
[2023-02-27] MEDS ORDERED: HALOPERIDOL LACTATE 5 MG/1 ML VIAL IM ONE (05:15)
[2023-02-27 05:27] LABS: MAGNESIUM 1.9 mg/dL (1.8-2.4); PHOSPHOROUS 3.5 mg/dL (2.5-4.9)
[2023-02-27] MEDS ORDERED: POTASSIUM BICARBONATE/CIT AC 25 MEQ TABLET.EFF PO ONE (06:45)
[2023-02-27] MEDS ORDERED: MAGNESIUM HYDROXIDE 30 ML LIQUID UDC PO PRN (07:00)
[2023-02-27] MEDS ORDERED: REMEDY ESSENTIAL ZINC PASTE 113 GM TP PRN (07:00)
[2023-02-27] MEDS ORDERED: DEXTROSE 50% 50 ML DISP.SYRIN IV PRN (07:00)
[2023-02-27] MEDS ORDERED: ACETAMINOPHEN 325 MG TABLET PO PRN (07:00)
[2023-02-27] MEDS ORDERED: IV NS 1000 ML 1,000 ML IV PRN (07:00)
[2023-02-27] MEDS ORDERED: METOCLOPRAMIDE HCL 10 MG/2 ML VIAL IV PRN (07:00)
[2023-02-27 08:13] LABS: MAGNESIUM 2.3 mg/dL (1.8-2.4); PHOSPHOROUS 3.7 mg/dL (2.5-4.9)
[2023-02-27] MEDS ORDERED: POTASSIUM BICARBONATE/CIT AC 25 MEQ TABLET.EFF ONE (08:42)
[2023-02-27] MEDS ORDERED: MORPHINE SULFATE 2 MG/1 ML DISP.SYRIN ONE ×4 (08:42→20:34)
[2023-02-27] MEDS ORDERED: PANTOPRAZOLE SODIUM 40 MG TABLET.DR PO ONE ×2 (08:42→08:43)
[2023-02-27] MEDS: BLOOD SUGAR DIAGNOSTIC 1 EACH STRIP VI SCH ×4 (09:00→21:26)
[2023-02-27] MEDS: MORPHINE SULFATE 2 MG/1 ML DISP.SYRIN IV PRN ×3 (09:00→23:35)
[2023-02-27] MEDS: PANTOPRAZOLE SODIUM 40 MG VIAL IV SCH (09:01)
[2023-02-27] MEDS: IV LACTATED RINGERS SOLUTION 1,000 ML IV PRN (09:03)
[2023-02-27] MEDS: INSULIN REGULAR, HUMAN 300 UNIT/3 ML VIAL SQ PRN ×2 (09:09→12:15)
[2023-02-27] MEDS ORDERED: MAGNESIUM CHLORIDE 64 MG TABLET.SA PO SCH (11:00)
[2023-02-27] MEDS: MORPHINE SULFATE 2 MG/1 ML DISP.SYRIN IM PRN ×2 (11:13→18:12)
[2023-02-27] MEDS ORDERED: CHOLECALCIFEROL 1,000 UNIT TABLET ONE (11:23)
[2023-02-27] MEDS: CHOLECALCIFEROL 1,000 UNIT TABLET PO SCH (11:24)
[2023-02-27] MEDS: METOCLOPRAMIDE HCL 10 MG/2 ML VIAL IV SCH ×2 (14:00→18:12)
[2023-02-27] MEDS ORDERED: ONDANSETRON 4 MG/2 ML VIAL ONE (20:33)
[2023-02-27] MEDS: ONDANSETRON 4 MG/2 ML VIAL IV PRN (20:38)
[2023-02-27] MEDS ORDERED: INSULIN GLARGINE,HUM 300 UNITS/3 ML CARTRIDGE SQ SCH (21:00)
[2023-02-27] MEDS ORDERED: INSULIN GLARGINE,HUM 300 UNITS/3 ML CARTRIDGE SQ ONE (21:39)
[2023-02-28] MEDS ORDERED: METOCLOPRAMIDE HCL 10 MG/2 ML VIAL ONE ×2 (01:44→06:29)
[2023-02-28] MEDS: METOCLOPRAMIDE HCL 10 MG/2 ML VIAL IV SCH ×2 (01:45→06:33)
[2023-02-28] MEDS ORDERED: MORPHINE SULFATE 4 MG/1 ML DISP.SYRIN ONE ×2 (03:37→07:55)
[2023-02-28] MEDS: MORPHINE SULFATE 2 MG/1 ML DISP.SYRIN IV PRN ×2 (03:45→08:09)
[2023-02-28] MEDS: BLOOD SUGAR DIAGNOSTIC 1 EACH STRIP VI SCH ×2 (04:00→08:00)
[2023-02-28] MEDS: INSULIN REGULAR, HUMAN 300 UNIT/3 ML VIAL SQ PRN (06:33)
[2023-02-28 07:22] LABS: BASOPHILS # (AUTO) 0.1 K/UL (0.0-0.2); DIFFERENTIAL COMMENT 1; EOSINOPHILS # (AUTO) 0.2 K/uL (0.0-0.7); EOSINOPHILS % (AUTO) 2.7 % (0.0-7.0); HEMATOCRIT 32.6 % (31.2-41.9); LYMPHOCYTES % (AUTO) 35.7 % (20.5-51.5); MEAN CORPUSCULAR HGB CONC 34 g/dL (32.3-35.6); MEAN CORPUSCULAR VOLUME 91.8 fL (75.5-95.3); MONOCYTES # (AUTO) 0.4 K/uL (0.1-1.30); NEUTROPHILS # (AUTO) 2.9 K/uL (1.8-8.9); NEUTROPHILS % (AUTO) 52.6 % (38.5-71.5); PLATELET COUNT (AUTO) 228 K/uL (179-408); RED BLOOD CELL COUNT(AUTO) 3.55 MIL/uL (3.63-4.92); RED CELL DISTRIBUTION WIDTH 13.2 % (12.3-17.7); WHITE BLOOD COUNT (AUTO) 5.6 K/uL (3.8-11.8)
[2023-02-28 07:37] LABS: CALCIUM 7.9 mg/dL (8.5-10.1); CREATININE 0.8 mg/dL (0.6-1.3); MAGNESIUM 1.7 mg/dL (1.8-2.4); PHOSPHOROUS 3.1 mg/dL (2.5-4.9); POTASSIUM 3.4 mmol/L (3.5-5.1)
[2023-02-28] MEDS ORDERED: ONDANSETRON 4 MG/2 ML VIAL ONE (07:54)
[2023-02-28] MEDS: IV LACTATED RINGERS SOLUTION 1,000 ML IV PRN (08:00)
[2023-02-28] MEDS: ONDANSETRON 4 MG/2 ML VIAL IV PRN (08:09)
[2023-02-28 09:00] VITALS: BP 142/84; TEMP 98.6; O2SAT 100
[2023-02-28] MEDS: CHOLECALCIFEROL 1,000 UNIT TABLET PO SCH (10:48)
[2023-02-28] MEDS: PANTOPRAZOLE SODIUM 40 MG VIAL IV SCH (10:48)
[2023-02-28] MEDS ORDERED: POTASSIUM CHLORIDE 10 MEQ TAB.PRT.SR PO ONE (11:30)
[2023-02-28 11:45] VITALS: BP 138/79; TEMP 98.4; O2SAT 99
== END 2023-02-28 12:00 | disposition home or self-care (01) | DRG 48 ==
LOC: ER 02:51 → TRANSITION 10:49 → MED 02-28 09:19
PROVIDERS: ADMIT Nurse Practitioner Family; ATTEND Nurse Practitioner Family
DX: E10.43 Type 1 diabetes mellitus with diabetic autonomic (poly)neuropathy (principal); E87.1 Hypo-osmolality and hyponatremia; E10.65 Type 1 diabetes mellitus with hyperglycemia; K31.84 Gastroparesis; Z79.4 Long term (current) use of insulin; E87.6 Hypokalemia; E83.42 Hypomagnesemia; F31.9 Bipolar disorder, unspecified; Z88.1 Allergy status to other antibiotic agents; Z91.040 Latex allergy status; F12.90 Cannabis use, unspecified, uncomplicated
CPT/HCPCS: 36415; 36600; 71045; 83605; 83690; 83735; 84100; 84443; 84484; 85025; 87040; 93005; A4606; A4663; C9113; G0378; J1630; J1815; J2270; J2405; J2765; J3475; J3480; J7040; J7120